=== PATIENT | female | born 1995 | race African-American/Black ===

== ENCOUNTER 2018-04-28 09:04 | Emergency (ER) | payer MEDICAID, MEDICARE ==
[~2018-04-28] VITALS: Ht 154.9 cm; Wt 64.0 kg
[~2018-04-28 09:04] MED LIST: [UNRECOGNIZED DRUG - REMARK]
[2018-04-28] MEDS ORDERED: PREDNISONE 20MG TABLET PO STA (11:17)
[2018-04-28] MEDS ORDERED: IBUPROFEN 600MG TABLET PO ONE (11:30)
[2018-04-28] MEDS ORDERED: AZITHROMYCIN 500 MG TABLET PO ONE (11:30)
[2018-04-28] MEDS ORDERED: IPRATROPIUM/ALBUTEROL 0.5-3(2.5)MG/3ML NEB HHN ONE (11:30)
[2018-04-28 11:39] VITALS: BP 119/85
== END 2018-04-28 13:34 | disposition home or self-care (01) ==
LOC: ER 09:43
DX: J40 Bronchitis, not specified as acute or chronic (principal); R07.9 Chest pain, unspecified; F17.200 Nicotine dependence, unspecified, uncomplicated
CPT/HCPCS: 71045; 81025; 94640; 99284; J7512; J7620; Z7610

== ENCOUNTER 2019-01-23 19:05 | Emergency (ER) | payer MEDICARE ==
[~2019-01-23] VITALS: Ht 157.5 cm; Wt 73.2 kg
[2019-01-23 22:44] VITALS: BP 128/68
== END 2019-01-23 22:45 | disposition home or self-care (01) ==
LOC: ER 20:33
DX: L02.818 Cutaneous abscess of other sites (principal)
CPT/HCPCS: 99283

== ENCOUNTER 2020-06-08 21:04 | Emergency (ER) | payer MEDICAID, MEDICARE ==
[~2020-06-08] VITALS: Ht 154.9 cm; Wt 70.0 kg
[2020-06-08 23:08] LABS: BASOPHILS % 0.6 % (0.0-2.0); EOSINOPHILS % 0.1 % (0.0-5.0); HEMATOCRIT. 39.7 % (36.0-48.0); HEMOGLOBIN. 13.6 g/dL (12.0-16.0); LYMPHOCYTES % 36.6 % (20.0-50.0); MEAN CORPUSCULAR HEMOGLOBIN 29.5 pg (28.0-32.0); MEAN CORPUSCULAR VOLUME 86.2 fL (81.0-99.0); MEAN PLATELET VOLUME 7.3 fl (7.4-10.4); MONOCYTES % 9.6 % (2.0-8.0); NEUTROPHILS % 53.1 % (40.0-76.0); PLATELET 248 x1000/uL (130-400); RED CELL DISTRIBUTION WIDTH 15.1 % (11.6-14.6)
[2020-06-08 23:14] LABS: CHLORIDE 104 mEq/L (98-107)
[2020-06-08 23:25] LABS: HCG SCREEN NEGATIVE
[2020-06-09 00:19] VITALS: BP 113/83
== END 2020-06-09 00:22 | disposition home or self-care (01) ==
LOC: ER 21:04
DX: U07.1 COVID-19 (principal); F17.290 Nicotine dependence, other tobacco product, uncomplicated
CPT/HCPCS: 36415; 71045; 80053; 83880; 84484; 84703; 85025; 93005; 99285